=== PATIENT | male | born 1950 | race Caucasian/White ===

== ENCOUNTER 2017-06-02 22:17 | Emergency (ER) | payer MEDICARE, MEDICAID ==
[~2017-06-02] VITALS: Ht 170.2 cm; Wt 77.2 kg
[2017-06-02 22:18] VITALS: BP 122/77
[2017-06-02] MEDS ORDERED: IBUPROFEN 800 MG TABLET PO STA (22:41)
[2017-06-02] MEDS ORDERED: IBUPROFEN 200 MG TABLET PO STA (22:51)
[2017-06-02 22:58] LABS: HEMATOCRIT 43.1 % (39.2-51.8); WHITE BLOOD COUNT 9.3 x10^3/uL (3.4-10)
[2017-06-02] MEDS ORDERED: LIDOCAINE 1%, 20ML SQ ONE (23:00)
[2017-06-02] MEDS ORDERED: BUPIVACAINE 0.25% INFIL ONE (23:00)
[2017-06-02 23:11] LABS: ASPARTATE AMINO TRANSFERASE 27 U/L (15-37); BLOOD UREA NITROGEN 21 mg/dL (7-18)
[2017-06-02] MEDS ORDERED: CEPHALEXIN 500 MG CAPSULE PO STA (23:28)
[2017-06-02] MEDS ORDERED: SULFAMETH./TRIMETHOPRIM DS 800MG/160MG TABLET PO ONE (23:30)
== END 2017-06-02 23:47 | disposition home or self-care (01) ==
LOC: ED 23:43
DX: L03.012 Cellulitis of left finger (principal)
CPT/HCPCS: 26011; 36415; 80053; 85025; 99284

== ENCOUNTER 2018-05-09 19:56 | Emergency (ER) | payer MEDICARE, MEDICAID ==
[~2018-05-09] VITALS: Ht 170.2 cm; Wt 87.0 kg
[2018-05-09 20:50] LABS: BASOPHILS # (AUTO) 0.08 x10^3/uL (0-0.1); BASOPHILS % (AUTO) 1 % (0-1); EOSINOPHILS # (AUTO) 0.14 x10^3/uL (0-0.4); EOSINOPHILS % (AUTO) 2 % (1-7); LYMPHOCYTES # (AUTO) 1.96 x10^3/uL (1-3.4); LYMPHOCYTES % (AUTO) 24 % (22-44); MD NO; MEAN CORPUSCULAR HEMOGLOBIN 30.3 pg (27.5-34.5); MEAN CORPUSCULAR HGB CONC 34.4 g/dL (33.2-36.2); MEAN CORPUSCULAR VOLUME 87.9 fL (81-97); MEAN PLATELET VOLUME 8.6 fL (7.4-10.4); MONOCYTES # (AUTO) 0.64 x10^3/uL (0.2-0.8); MONOCYTES % (AUTO) 8 % (2-9); NEUTROPHILS # (AUTO) 5.43 x10^3/uL (1.8-6.8); NEUTROPHILS % (AUTO) 66 % (42-75); PLATELET COUNT 263 x10^3/uL (130-400); RED BLOOD COUNT 5.12 x10^6/uL (4.38-5.82); RED CELL DISTRIBUTION WIDTH 13.1 % (9.4-14.8)
[2018-05-09 20:53] LABS: MICROSCOPIC NOT IND
[2018-05-09 20:58] LABS: CULTURE INDICATED? NO
[2018-05-09 21:02] LABS: ALBUMIN 3.8 g/dL (3.4-5.0); ANION GAP 10 mmol/L (5-15); CALCIUM 8.6 mg/dL (8.5-10.1); CHLORIDE 107 mmol/L (98-107); CREATININE 1.05 mg/dL (0.7-1.3)
[2018-05-09 21:53] VITALS: BP 134/76
== END 2018-05-09 21:55 | disposition home or self-care (01) ==
LOC: ED 21:00
DX: R33.9 Retention of urine, unspecified (principal); R35.0 Frequency of micturition
CPT/HCPCS: 36415; 51702; 80048; 81003; 82040; 85025; 99284

== ENCOUNTER 2018-05-10 07:02 | Emergency (ER) | payer MEDICARE, MEDICAID ==
[~2018-05-10] VITALS: Ht 170.2 cm; Wt 87.0 kg
[2018-05-10 08:16] VITALS: BP 119/76
== END 2018-05-10 08:18 | disposition home or self-care (01) ==
LOC: ED 08:10
DX: T83.091A Other mechanical complication of indwelling urethral catheter, initial encounter (principal); X58.XXXA Exposure to other specified factors, initial encounter; Y93.89 Activity, other specified; Y92.89 Other specified places as the place of occurrence of the external cause; Y99.8 Other external cause status
CPT/HCPCS: 99281

== ENCOUNTER 2018-06-22 16:58 | Emergency (ER) | payer MEDICARE, MEDICAID ==
[~2018-06-22] VITALS: Ht 170.2 cm; Wt 85.8 kg
[2018-06-22] MEDS ORDERED: ONDANSETRON 2MG/ML, 2ML ONE (17:46)
[2018-06-22] MEDS ORDERED: MORPHINE SULFATE 4 MG/ML, 1ML ONE ×2 (17:46→18:57)
[2018-06-22 17:47] LABS: MICROSCOPIC NOT IND
[2018-06-22 17:48] LABS: CULTURE INDICATED? NO
[2018-06-22] MEDS: MORPHINE SULFATE 4 MG/ML, 1ML IVPush PRN ×2 (17:49→19:01)
[2018-06-22] MEDS ORDERED: ONDANSETRON 2MG/ML, 2ML IVPush ONE (18:00)
[2018-06-22 18:13] LABS: BASOPHILS # (AUTO) 0.03 x10^3/uL (0-0.1); BASOPHILS % (AUTO) 0 % (0-1); EOSINOPHILS # (AUTO) 0.06 x10^3/uL (0-0.4); EOSINOPHILS % (AUTO) 1 % (1-7); LYMPHOCYTES # (AUTO) 1.48 x10^3/uL (1-3.4); LYMPHOCYTES % (AUTO) 16 % (22-44); MD NO; MEAN CORPUSCULAR HEMOGLOBIN 30.2 pg (27.5-34.5); MEAN CORPUSCULAR HGB CONC 34.9 g/dL (33.2-36.2); MEAN CORPUSCULAR VOLUME 86.7 fL (81-97); MEAN PLATELET VOLUME 8.5 fL (7.4-10.4); MONOCYTES # (AUTO) 0.46 x10^3/uL (0.2-0.8); MONOCYTES % (AUTO) 5 % (2-9); NEUTROPHILS # (AUTO) 7.34 x10^3/uL (1.8-6.8); NEUTROPHILS % (AUTO) 78 % (42-75); PLATELET COUNT 238 x10^3/uL (130-400); RED BLOOD COUNT 5.27 x10^6/uL (4.38-5.82); RED CELL DISTRIBUTION WIDTH 12.9 % (9.4-14.8)
[2018-06-22 18:21] LABS: ANION GAP 7 mmol/L (5-15); CALCIUM 9.1 mg/dL (8.5-10.1); CHLORIDE 108 mmol/L (98-107)
[2018-06-22 18:25] LABS: ALANINE AMINOTRANSFERASE 71 U/L (12-78); ALKALINE PHOSPHATASE 147 U/L (45-117); BILIRUBIN,TOTAL 0.5 mg/dL (0.2-1.0); TOTAL PROTEIN 7.8 g/dL (6.4-8.2)
[2018-06-22] MEDS ORDERED: OMNIPAQUE 350 MG/ML, 100ML BOTTLE ONE (19:15)
[2018-06-22 20:52] VITALS: BP 139/81
== END 2018-06-22 20:54 | disposition home or self-care (01) ==
LOC: ED 19:22
DX: K43.9 Ventral hernia without obstruction or gangrene (principal)
CPT/HCPCS: 36415; 74177; 80053; 81003; 83690; 85025; 96374; 96375; 96376; 99284; J2405; Q9967

== ENCOUNTER 2018-12-01 22:30 | Emergency (ER) | payer MEDICARE, MEDICAID ==
[~2018-12-01] VITALS: Ht 170.2 cm; Wt 85.0 kg
[2018-12-01 22:35] VITALS: BP 125/83
[2018-12-02] MEDS ORDERED: LIDOCAINE 2%,20 ML JEL.PF.APP MM ONE ×2 (00:45→01:00)
--- NOTE | 2018-12-02 00:51 | NUR ---
PT MEDICATED PER MAR.
[2018-12-02 02:30] LABS: MICROSCOPIC AUTO
[2018-12-02 02:32] LABS: CULTURE INDICATED? NO
--- NOTE | 2018-12-02 02:49 | NUR ---
PT D/C WITH D/C SUMMARY AND SCRIPTS. ALL QUESTIONS ANSWERED. PT PROVIDED WITH URINE BAG WHICH HAS BEEN SECURED TO PT LEG PRIOR TO D/C. PT EDUCATED AND ABLE TO PROVIDE RETURN DEMONSTRATION FOR EMPTYING BAG AND CATHETER CARE. PT AMBULATES TO REGISTRATION DESK WITH STEADY GAIT AND DENIES ANY OTHER NEEDS PERTAINING TO THIS VISIT.
== END 2018-12-02 03:00 | disposition home or self-care (01) ==
LOC: ED 23:59
DX: R33.9 Retention of urine, unspecified (principal)
CPT/HCPCS: 51702; 81001; 99284

== ENCOUNTER 2019-11-15 08:33 | Emergency (ER) | payer MEDICAID, MEDICARE ==
[~2019-11-15] VITALS: Ht 170.2 cm; Wt 88.8 kg
[2019-11-15 08:42] VITALS: BP 120/83
== END 2019-11-15 09:10 | disposition home or self-care (01) ==
LOC: ED 09:04
DX: H60.502 Unspecified acute noninfective otitis externa, left ear (principal)
CPT/HCPCS: 99283

== ENCOUNTER 2021-01-14 05:16 | Emergency (ER) | payer MEDICAID, MEDICARE ==
[~2021-01-14] VITALS: Ht 170.2 cm; Wt 80.2 kg
[2021-01-14 05:19] VITALS: BP 123/82
--- NOTE | 2021-01-14 06:02 | NUR ---
PT CALEED TO ROOM NA X 1
--- NOTE | 2021-01-14 06:21 | NUR ---
NA X 2 WHEN CALLED FOR ROOM
--- NOTE | 2021-01-14 06:59 | NUR ---
CHARGE: PT CALLED AND LOOKED FOR IN LOBBY N/A
== END 2021-01-14 07:00 | disposition left against medical advice (07) ==
LOC: ED 06:50
DX: R10.9 Unspecified abdominal pain (principal); Z53.21 Procedure and treatment not carried out due to patient leaving prior to being seen by health care provider